=== PATIENT | female | born 1990 | race African-American/Black ===

== ENCOUNTER 2023-05-15 20:44 | Emergency (ER) | payer SELFPAY ==
[~2023-05-15] VITALS: Ht 167.6 cm; Wt 85.3 kg
[2023-05-15 20:46] VITALS: TEMP 97.8
[2023-05-15] MEDS ORDERED: MEDR5TAB5 PO (20:55)
[2023-05-15] MEDS: DiphenhydrAMINE HCL 50 MG/ML VIAL IVP ONE (21:37)
[2023-05-15] MEDS: MethylPREDNISolone SOD SUCC 125 MG/2 ML VIAL IVP ONE (21:37)
[2023-05-15 21:39] LABS: BASOPHILS % (AUTO) 0.9 % (0.0-2.0); HEMATOCRIT 37.4 % (36-46); HEMOGLOBIN 12.5 g/dL (12.0-16.0); LYMPHOCYTES # (AUTO) 3.2 K/uL (1.0-4.8); LYMPHOCYTES % (AUTO) 44.7 % (22.0-44.0); MEAN CORPUSCULAR HEMOGLOBIN 32.4 pg (26.0-34.0); MEAN CORPUSCULAR HGB CONC 33.3 G/dL (31.0-37.0); MEAN CORPUSCULAR VOLUME 97 fL (80-100); MONOCYTES # (AUTO) 0.5 K/uL (0.1-1.0); MONOCYTES % (AUTO) 6.7 % (2.0-9.0); NEUTROPHILS # (AUTO) 3.1 K/uL (1.8-7.7); NEUTROPHILS % (AUTO) 43.7 % (40.0-70.0); PLATELET COUNT (AUTO) 368 K/uL (150-450); RED BLOOD CELL COUNT(AUTO) 3.85 MIL/uL (4.00-5.20); RED CELL DISTRIBUTION WIDTH 13.3 % (11.5-14.5); WHITE BLOOD COUNT (AUTO) 7.2 K/uL (4.5-11.0)
[2023-05-15 21:46] LABS: ANION GAP 14 mmol/L (8-16); CALCIUM, TOTAL 9.2 mg/dL (8.8-10.5); CARBON DIOXIDE 28 mmol/L (22-29); CHLORIDE 102 mmol/L (98-107); CREATININE 0.96 mg/dL (0.60-1.30); GLOMERULAR FILTR. RATE CALC > 60 mL/min (>60); GLUCOSE,RANDOM 110 mg/dL (70-110); POTASSIUM 3.3 mmol/L (3.5-5.1); SODIUM SERUM 143 mmol/L (136-145); UREA NITROGEN, BLOOD 15 mg/dL (7-18)
[2023-05-15] MEDS ORDERED: METH4TAB3 PO (22:22)
[2023-05-15] MEDS ORDERED: CETI-89 PO (22:22)
[2023-05-15] MEDS: FAMOTIDINE 20 MG/2 ML VIAL IVP ONE (22:30)
[2023-05-15 23:05] VITALS: BP 138/88; PULSE 78; RESP 16
== END 2023-05-15 23:40 | disposition home or self-care (01) ==
LOC: EMS 20:44
DX: T78.40XA Allergy, unspecified, initial encounter (principal); F41.9 Anxiety disorder, unspecified; F31.9 Bipolar disorder, unspecified; Z91.011 Allergy to milk products; X58.XXXA Exposure to other specified factors, initial encounter
CPT/HCPCS: 99291; 96374; 96375; 80048; 84703; 85025; 36415; J1200; J3490; J2930